=== PATIENT | male | born 1945 | race Caucasian/White ===

== ENCOUNTER 2016-03-05 07:44 | Emergency (ER) | payer MEDICARE, OTHER ==
[2016-03-05] MEDS ORDERED: CYCLOBENZAPRINE 10 MG TABLET PO STA (08:49)
[2016-03-05] MEDS ORDERED: CYCLOBENZAPRINE 10 MG TABLET PO ONE (08:51)
== END 2016-03-05 08:55 | disposition home or self-care (01) ==
DX: S29.012A Strain of muscle and tendon of back wall of thorax, initial encounter (principal); X50.0XXA Overexertion from strenuous movement or load, initial encounter; Y93.89 Activity, other specified; Y92.009 Unspecified place in unspecified non-institutional (private) residence as the place of occurrence of the external cause; Y99.8 Other external cause status
CPT/HCPCS: 81003; 99283; A9270

== ENCOUNTER 2020-03-06 09:21 | Outpatient (CLI) | payer MEDICARE, OTHER ==
--- NOTE | 2020-03-06 13:27 | CT Report ---
PROCEDURE: Abdomen/Pelvis WO INDICATIONS: HEMATURIA, HX RT RENAL STONE, HX BLADDER CA TECHNIQUE: Noncontrast 5 mm thick sections acquired from the diaphragms to the symphysis. 5 mm coronal and sagi ttal reformats were then performed. For radiation dose reduction, the following was used: automated exposure control, adjustment of mA and/or kV according to patient size. COMPARISON: 10/27/2010. FINDINGS: Image quality: Excellent. ABDOMEN: Lung bases: Lung bases are clear. Heart size is normal. Solid organs: Liver and spleen are normal in size. Gallbladder is unremarkable. Pancreas is normal in contours. No adrenal nodules. Kidneys are normal in size. There are bilateral nephroliths measu ring up to 6 mm on the left and 6 mm on the right. There is a 1.3 x 0.7 cm urolith identified within the right renal pelvis. No evidence for hydronephrosis or perinephric stranding. Visualized course of the right ureter is unremarkable. No right-sided ureteral stone is seen. There is no hydronephrosis on the left. No left-sided ureteral stones. Previously seen distal left ureteral stone is no longer v isualized and presumably passed or removed. Peritoneum and bowel: Unenhanced bowel loops demonstrate normal wall thickness and caliber. No free fluid or air. Scattered colonic diverticulosis without acute inflammatory changes. Normal appendix. Nodes and vessels: No retroperitoneal or mesenteric adenopathy by size criteria. Aorta and inferior vena cava are normal in caliber. Scattered atherosclerotic calcifications. Mild ectasia of the right common iliac artery and borderline ectasia of the left common iliac artery. This is not significantl y changed. Miscellaneous: No ventral hernias. PELVIS: Genitourinary: Bladder wall thickness is normal for degree of bladder distention. No urinary bladder stone visualized. Miscellaneous: No pelvic adenopathy. Very small fat-containing left inguinal hernia without acute i nflammation. Bones: No suspicious bony lesions. No acute vertebral body compression fractures. Moderate multile robb spondylosis throughout the imaged spine with disc space loss, degenerative endplate changes and e ndplate osteophyte formation most pronounced from L3-4 through L5-S1. Degenerative changes of the radha ateral femoroacetabular joints. IMPRESSION: 1. Nonobstructing bilateral nephrolithiasis. Previously seen 4mm distal left ureteral stone is no boyd claudy visualized. Prominent 1.3 x 0.7 cm urolith visualized within the right renal pelvis. 2. Diverticulosis without acute diverticulitis. Other chronic findings as above. Reviewed by: Ravinder Rojas MD on 03/06/2020 1:25 PM PST Approved by: Ravinder Rojas MD on 03/06/2020 1:25 PM PST Station ID: [id number]
== END 2020-03-06 09:22 | disposition home or self-care (01) ==
LOC: DI 09:21
PROVIDERS: ATTEND Internal Medicine
DX: N20.0 Calculus of kidney (principal); R31.9 Hematuria, unspecified; Z85.51 Personal history of malignant neoplasm of bladder
CPT/HCPCS: 74176

== ENCOUNTER 2020-08-19 15:38 | Outpatient (CLI) | payer MEDICARE, OTHER ==
--- NOTE | 2020-08-19 17:03 | XRAY Report ---
PROCEDURE: Lumbar Spine 2 View INDICATIONS: LOW BACK PX TECHNIQUE: 3 views of the lumbar spine were acquired. COMPARISON: None. FINDINGS: Bones: 5 hyu-[id number]-[id number] vertebrae are present. There is scoliotic bony alignment, dextroscoliotic at the lumbosacral spine and levoscoliotic at the low thoracic spine. No vertebral body compression fractures. No suspicious bony lesions. Soft tissues: Overlying bowel gas pattern is normal. Again noted and better visualized on CT scannin g from 03/06/2020 are small and moderately large collecting system calculi at the right kidney includin g a large renal pelvis calculus easily visible. A thin lower pole left renal collecting system calcul us is seen. IMPRESSION: The lumbosacral spine is relatively prominently scoliotic both at the low thoracic spine and the lumbosacral spine. Degenerative disc disease and facet osteoarthritis is moderately severe t o severe overall, with likelihood of significant spinal and foraminal stenosis. Depending on the clinical status follow-up by MR scanning may be warranted. Multiple urinary tract stones of been recently previously documented by CT scanning in March of s year, and these remain. The largest calculus is at the renal pelvis on the right-please refer to th e prior report for further discussion. Urology consultation may be warranted. Reviewed by: Holger Mo MD on 08/19/2020 5:01 PM PDT Approved by: Holger Mo MD on 08/19/2020 5:01 PM PDT Station ID: [id number]
== END 2020-08-19 15:39 | disposition home or self-care (01) ==
LOC: DI.N 15:38
PROVIDERS: ATTEND Physician Assistant
DX: M47.816 Spondylosis without myelopathy or radiculopathy, lumbar region (principal); M51.36 Other intervertebral disc degeneration, lumbar region; M48.061 Spinal stenosis, lumbar region without neurogenic claudication; N20.0 Calculus of kidney

== ENCOUNTER 2021-03-11 21:50 | Outpatient (CLI) | payer MEDICARE, OTHER ==
--- NOTE | 2021-03-12 02:32 | Ultrasound Report ---
PROCEDURE: Head or Neck Soft Tissue INDICATIONS: RIGHT PREAURICULAR HARD MASS TECHNIQUE: Real time scanning was performed of the neck region of interest, with image documentation . COMPARISON: None. FINDINGS: Multiple grayscale and color Doppler images of the palpable area of concern were acquired. At the patient directed area of interest in the right preauricular region, there is a heterogeneous, irregular hypoechoic mass which appears to be within the parotid gland. It is vascular. This mass robert sures approximately 1.3 x 1.5 x 1.3 cm. IMPRESSION: Irregular, vascular hypoechoic mass in the right preauricular region measuring 1.5 cm in size. This m ass may be within the right parotid gland. Overall, this is a suspicious finding. Recommend further e valuation with contrast-enhanced CT of the neck. Biopsy can also be considered. Reviewed by: Ravinder Calderon MD on 03/12/2021 2:31 AM PST Approved by: Ravinder Calderon MD on 03/12/2021 2:31 AM PST Station ID: [id number]
== END 2021-03-11 21:51 | disposition home or self-care (01) ==
LOC: DI 21:50
PROVIDERS: ATTEND Physician Assistant
DX: R22.0 Localized swelling, mass and lump, head (principal)

== ENCOUNTER 2021-03-19 10:42 | Outpatient (CLI) | payer MEDICARE, OTHER ==
[2021-03-19] MEDS ORDERED: iohexoL-300 100 ML VIAL ONE (10:54)
[2021-03-19 11:50] LABS: CREATININE 1.1 mg/dL (0.6-1.2)
--- NOTE | 2021-03-19 14:02 | CT Report ---
PROCEDURE: SOFT TISSUE NECK W INDICATIONS: MASS OF HEAD AND NECK CONTRAST: IV CONTRAST: Isovue 300 ml: 100 PO CONTRAST: *NO PO CONTRAST TECHNIQUE: After the administration of intravenous contrast, 3.0 mm axial sections acquired from the sella to th e aortic arch. Additional oblique axial 3.0 mm sections acquired through the pharynx. 3 mm thick co kevin reformats were generated. For radiation dose reduction, the following was used: automated exp osure control, adjustment of mA and/or kV according to patient size. COMPARISON: Correlation is made with the accompanying head CT, 03/19/2021. Correlation is also made w ith the recent ultrasound, 03/11/2021. FINDINGS: Image quality: There is artifact associated with the metallic hardware. Lymph nodes: No enlarged lymph nodes seen throughout the neck. Vessels: Visualized vasculature appears patent. Neck spaces: The oropharynx, nasopharynx, and pharynx demonstrate no mucosal lesions. The vocal cor ds, false vocal cords, pyriform sinuses, epiglottis, vallecula, and tongue base all appear normal. E xtramucosal spaces appear unremarkable. Glands: Evaluation of the area of clinical concern of the parotid glands is limited by streak artifa ct. At the area of clinical concern, there is a hyperenhancing nodule along the posterior inferior as pect of the right parotid gland that measures approximately 2 x 1.3 in greatest axial dimension. The submandibular glands appear normal. The thyroid is normal in size and there are no incidental fi ndings. Miscellaneous: Visualized brain and orbits appear normal. Lung apices appear clear. Superficial so ft tissues appear normal. Bones: No suspicious bony lesions. There is subtotal opacification seen involving the right maxilla ry sinus. Visualized sinuses and mastoids otherwise appear unremarkable. Moderate to prominent cervic al spine degenerative changes are seen. IMPRESSION: There is a poorly seen mass at the area of clinical concern along the posterior inferior aspect of th e right parotid. Differential diagnosis includes pleomorphic adenoma and Warthin tumor. Additional en tities including carcinoma metastatic disease, and an intraparotid lymph node are also possible, yet considered to be less likely. Please consider ultrasound guided percutaneous fine needle aspiration. No enlarged lymph nodes are seen. Incidental note is made of: Focal right maxillary sinus disease. Moderate to prominent cervical spine degenerative change Reviewed by: Dandre Patel MD on 03/19/2021 1:01 PM DEBBIE Approved by: Dandre Patel MD on 03/19/2021 1:[address] [facility] Station ID: [id number]
--- NOTE | 2021-03-19 14:04 | CT Report ---
PROCEDURE: HEAD W INDICATIONS: MASS OF HEAD AND NECK CONTRAST: IV CONTRAST: Isovue 300 ml: 100 PO CONTRAST: *NO PO CONTRAST TECHNIQUE: 4.5 mm thick angled axial sections acquired from the foramen magnum to the vertex after the administr ation of intravenous contrast. For radiation dose reduction, the following was used: automated expo sure control, adjustment of mA and/or kV according to patient size. COMPARISON: Correlation is made with the accompanying soft tissue neck CT, 03/19/2021. Relation is al so made with the recent prior ultrasound, 03/11/2021. FINDINGS: Image quality: Excellent. CSF Spaces: Basal cisterns are patent. No extra-axial fluid collections. Ventricles are normal in size and shape. Brain: No midline shift. No intracranial bleeds or masses. No abnormal intracranial enhancement. Garcia-white interface appears normal. Age-appropriate brain parenchymal volume loss and chronic small vessel ischemic change can be seen. Skull and face: Calvarium and visualized facial bones appear intact, without suspicious lesions. Th e area of clinical concern of the right parotid is off of the [id number] of this study. Sinuses: Visualized sinuses and mastoids are clear. IMPRESSION: Unremarkable intracranial study, without findings of masses or abnormal enhancement. Age-appropriate brain parenchymal volume loss and chronic small vessel ischemic change can be seen. Reviewed by: Dandre Patel MD on 03/19/2021 1:02 PM [facility] Approved by: Dandre Patel MD on 03/19/2021 1:02 PM [facility] Station ID: [id number]
[2021-03-19] MEDS ORDERED: iohexoL-300 100 ML VIAL IVP ONE (16:29)
== END 2021-03-19 10:43 | disposition home or self-care (01) ==
LOC: LAB 10:42
PROVIDERS: ATTEND Physician Assistant
DX: R22.0 Localized swelling, mass and lump, head (principal); K11.8 Other diseases of salivary glands
CPT/HCPCS: 36415; 70460; 70491; 82565; Q9967

== ENCOUNTER 2023-01-04 18:13 | Emergency (ER) | payer MEDICARE, OTHER ==
[2023-01-04 18:48] VITALS: BP 163/89; O2SAT 100
== END 2023-01-04 20:09 | disposition left against medical advice (07) ==
LOC: ED 18:13
DX: Z53.21 Procedure and treatment not carried out due to patient leaving prior to being seen by health care provider (principal)

== ENCOUNTER 2023-01-29 10:50 | Outpatient (CLI) | payer MEDICARE, OTHER ==
--- NOTE | 2023-01-29 11:30 | Sleep Patient Instructions ---
Sleep Center Visit Summary - Patient Visit Information Reason for Visit: Initial consult for evaluation of sleep disordered breathing and other sleep issues. - Patient Instructions Instructions Attached: Sleep Study Additional Instructions: You will be completing a sleep study, either an in-lab polysomnography (PSG) or home sleep study (HST). You will follow-up in the sleep care office after the sleep study is completed to hear the results and talk about therapy, if needed. You will be called by our office staff to schedule this appointment, but you may contact us with any questions. - Clinic Information Contact: [facility] [address] [place] [address] [email or web address] T: [phone]
--- NOTE | 2023-01-29 11:38 | SLEEP CARE CONSULTATION ---
Information from patient questionnaire entered by Abigail Murillo. I have reviewed and concur with the information entered by Abigail Murillo. This document represents the service I personally performed and the decisions made by me, Elle Chen ARNP. History of Present Illness Service Date and Time: 01/29/2023 1050 Reason for Visit: New patient Accompanied by: Spouse Chief Complaint: reports: Unrefreshed sleep, Frequent awakenings at night Date of Onset: AT LEAST 10YRS Usual bedtime: 10PM Time it takes to fall asleep: 15-25 minutes Snores at night: Yes (occasional) Observed to quit breathing while asleep: No Sleeps alone due to snoring: No Number of times waking at night: 2-3 Reasons for waking at night: reports: Bathroom, Other (UNKNOWN). denies: Choking, Snoring, Gasping for air Toss, Turn, or Twitch while sleeping: No Recalls having dreams: Yes Usually gets out of bed at: 630AM Feels refreshed in the morning: No Morning headache: No Sleepy or fatigued during the day: Yes (will doze off if sitting still ) Ever fallen asleep while driving: No Takes day naps: Yes (almost daily in afternoon for 30 minutes to hour) Dreams during day naps: Yes Prior sleep studies: No Additional HPI information: I had the pleasure of seeing JACQUELYN CESAR with spouse accompanying him today regarding the possibility of him having a sleep disorder. His current complaints are frequent night awakenings and unrefreshed sleep. He says he is a light sleeper and will wake up frequently. He says he was on second shift for many years when he was working. He retired in 2010 and since then he has been waking up more frequently. He used to sleep through the night without waking up. He will wake up at night for bathroom and other unknown reasons. He sometimes wakes up in early AM and cannot go back to sleep easily. He is active, works out at gym 3 times a week. He will doze off if he sits and reads. He usually takes a nap for about an hour in the late afternoon. He does not wake up feeling refreshed. His says that he snores occasionally and she will touch him when he does and he stops. She is able to sleep in same room. She denies seeing him stop breathing or pause in breathing when sleeping. - Parasomnia Symptoms Ever been unable to move upon waking from sleep: No Walks in sleep: No Talks in sleep: No Ever acted out dreams in sleep: No Ever felt weak in the knees when startled or emotional: No Bothered by creepy, crawly, restless sensations in legs: No Problems with memory or concentration: Yes (concentration more but memory not as sharp) Subjective Initial [place] Sleepiness Scale score: 8 (01/29/23) Past Medical History Past Medical History: reports: Other (shoulder surgeries; scoliosis) Social History The patient's occupation is a RE. Patient is and lives in [place]. Have you smoked in the past 12 months: No Alcohol use: Yes Alcohol amount and frequency: 2-3OZ 3TIMES PER WEEK AT4PM Caffeine use: Yes Caffeine amount and frequency: 1 CUP MORNINGS SOMETIMES AFTERNOON Family History Family history of sleep disordered breathing: No Allergies and Home Medications Known drug allergies: No Drug allergies reviewed: Yes Home medication list reviewed: Yes Allergy and home medication list: Allergies No Known Drug Allergies Allergy (Verified 01/28/23 13:01) Home Medications Medication Instructions Recorded Confirmed Last Taken Type Simvastatin [Zocor] 10 mg PO DAILY 07/15/12 01/29/23 Unknown History Ascorbic Acid [Vitamin C] See Rx Instructions .ROUTE .COMPLEX 01/29/23 01/29/23 Unknown History Cholecalciferol (Vitamin D3) See Rx Instructions .ROUTE .COMPLEX 01/29/23 01/29/23 Unknown History [Vitamin D3] Glutamine [l-Glutamine] See Rx Instructions .ROUTE .COMPLEX 01/29/23 01/29/23 Unknown History Progesterone, Micronized See Rx Instructions .ROUTE .COMPLEX 01/29/23 01/29/23 Unknown History [Prometrium] Review of Systems Weight loss over past 5 years: 12 Cardiovascular: denies: high blood pressure Gastrointestinal: reports: difficulty swallowing (chicken or salmon in particular) Neurological: denies: headaches Psychiatric: denies: anxiety, depression Ear/Nose/Throat: reports: dry mouth/throat, hoarseness. denies: tonsillectomy Endocrine: denies: thyroid disease Musculoskeletal: reports: back pain Physical Exam Vital signs obtained and entered by: ABIGAIL Louie MA Blood Pressure: 112/70 (LEFT ARM) Cuff size: regular Heart Rate: 68 O2 Saturation: 98 Height: 5 ft 3 in Weight: 138 lb 6.4 oz Body Mass Index: 24.5 BMI Classification: Normal Neck circumference: 14.5 Mouth and throat: normal Soft palate: normal Hard palate: normal Uvula: normal Uvula visualization: 100% Mallampati Class I Tongue: enlarged in size with teeth boland on lateral edges Tonsils: small Neck: normal w/o lymphadenopathy or thyromegaly Heart: regular rate and rhythm Lungs: clear bilaterally Impression and Plan 1. Suspected Obstructive Sleep Apnea-Hypopnea Syndrome, as suggested by a history of loud and irregular snoring, frequent awakening during the night, unrefreshed sleep, cognitive impairment, and excessive daytime sleepiness. Narrow oropharynx and obesity are common predisposing factors for obstructive sleep apnea-hypopnea syndrome. I recommend proceeding to polysomnography to confirm the diagnosis and to assess severity. If the patient has significant sleep disordered breathing, a manual CPAP titration study will also be performed to find the optimal treatment pressure. I informed the patient of what the sleep studies involve and after some discussion, obtained agreement to proceed. The pathophysiology of obstructive sleep apnea-hypopnea syndrome was discussed with the patient and health risks of cardiovascular and cerebrovascular disease if not treated. Risks of drowsy driving discussed in detail and patient advised to avoid long distance driving and to tack puller at the first sign of drowsiness. Patient agreed to plan. * Schedule polysomnography +- manual CPAP titration study and return in 1-2 weeks after the study to discuss result and initiate therapy. * Avoid long distance driving or driving when feeling sleepy. * Avoid alcohol, sedative and muscle relaxant around bedtime. * Review instructions provided by trained office staff on how to prepare for the sleep study. * Return for follow-up after sleep study completed. Plan: PSG Visit Type: In Office Time Spent with Patient (minutes): 32 Provider Statement: I spent 100% of the Face to Face Visit with the patient with greater than 50% spent counseling the patient and coordination of care.
[2023-01-29 11:43] VITALS: BP 112/70; O2SAT 98
== END 2023-01-29 10:51 | disposition home or self-care (01) ==
LOC: SC 10:50
PROVIDERS: ATTEND Nurse Practitioner Family
DX: G47.10 Hypersomnia, unspecified (principal); R06.83 Snoring; G47.8 Other sleep disorders; R41.89 Other symptoms and signs involving cognitive functions and awareness
CPT/HCPCS: 99203; G0463; 99212

== ENCOUNTER 2023-02-17 19:51 | Outpatient (CLI) | payer MEDICARE, OTHER | END 2023-02-17 19:52 | disposition home or self-care (01) | LOC: SC 19:51 | PROVIDERS: ATTEND Nurse Practitioner Family | DX: R53.83 Other fatigue (principal); G47.8 Other sleep disorders; R06.83 Snoring | CPT/HCPCS: 95810 ==

== ENCOUNTER 2023-03-04 09:43 | Outpatient (CLI) | payer MEDICARE, OTHER ==
--- NOTE | 2023-03-04 10:17 | Sleep Patient Instructions ---
Sleep Center Visit Summary - Patient Visit Information Reason for Visit: Sleep study follow-up - Patient Instructions Additional Instructions: Your sleep study today was negative for significant sleep disordered breathing. However, you did have elevated respiratory episodes when sleeping on your back. You should avoid sleeping on your back to control these respiratory episodes. You were found to have episodes of snoring. There are different ways to control snoring including weight loss, oral devices made by a dentist or surgical options through ENT specialist. You should not use oral devices that do not fit properly because they can affect your bite. You should also check insurance coverage of oral devices for snoring because they may not be cover well. You may obtain a referral to an ENT specialist through your primary provider. Follow-up as needed. - Clinic Information Contact: Located within [facility] [address] [place] [address] [email or web address] T: [phone]
--- NOTE | 2023-03-04 10:20 | SLEEP CARE CONSULTATION ---
Information from patient questionnaire entered by Darya Murillo. I have reviewed and concur with the information entered by Darya Murillo. This document represents the service I personally performed and the decisions made by , Elle Chen ARNP. History of Present Illness Service Date and Time: 03/04/2023 0943 Accompanied by: Spouse (Laura) Initial Delta Sleepiness Scale score: 8 (01/29/23) Current Delta Sleepiness Scale score: 10 Additional HPI information: JACQUELYN CESAR returns for follow up and results of the recently performed polysomnography. The patient was informed of the following findings: No significant sleep disordered breathing with an average AHI of 1.0 and miriam oxygen saturation of 91%. I explained the pathophysiology behind obstructive sleep apnea. Patient does not have sleep apnea and was advised how weight gain could increase the risk of developing sleep apnea in the future. Patient does not have significant sleep disordered breathing but has elevated AHI in supine position so advised positional therapy. Methods to achieve positional management therapy were discussed; such as, positioning with pillows, wearing a T-shirt with tennis balls sewn into the back or commercially available products. Patient has minimal snoring. Snoring can be reduced by weight loss. Weight loss is best achieved with diet consult. Patient instructed to contact PCP for referral. Snoring can also be treated with an oral appliance from a dentist. Advised to check insurance coverage. In addition, an ENT evaluation can be do to see if other treatment is indicated. Patient counseled not drink alcohol less than 4 hours before bedtime as it can increase snoring and apnea. Patient was cautioned about risks of drowsy driving until sleepiness symptoms resolve. Patient denies drowsy driving. Sleep Study - Results Type of Sleep Study: Polysomnography (COMPLETED 02/17/23) Prior sleep studies: No Polysomnography/Home Sleep Study results: IMPRESSION: The quality of the study is good. The patient had reduced sleep efficiency due to wakefulness after sleep onset. The sleep architecture was also normal. Respiratory monitoring showed no significant sleep disordered breathing (AHI = 1.0) or hypoxia (miriam oxygen saturation of 91%). The patient slept mostly supine (supine AHI = 5.7; non-supine = 0.55). No audible snore. There was no significant periodic leg movement of sleep. Cardiac rhythm was normal sinus rhythm without significant arrhythmia. No abnormal behavior (parasomnia) observed during the night. Allergies and Home Medications Known drug allergies: No Drug allergies reviewed: Yes Home medication list reviewed: Yes (no changes) Allergy and home medication list: Allergies No Known Drug Allergies Allergy Review of Systems Review of systems same as previous: Yes (no changes) Physical Exam Vital signs obtained and entered by: GAGAN WHITEHEAD Blood Pressure: 112/71 Cuff size: wrist (right) Heart Rate: 58 O2 Saturation: 99 Height: 5 ft 3 in Weight: 139 lb Body Mass Index: 24.6 BMI Classification: Normal Impression and Plan 1. Snoring but no significant sleep disordered breathing. However patient did have minimally elevated supine AHI at 5.7 and should avoid sleeping supine. An oral appliance can also be used for snoring. This would require a dental c onsultation. Patient cautioned not to use other online appliances as can cause bite issues. Patient is advised to check if insurance will cover. An ENT consult can also be helpful to determine if any other treatment is an option. * Maintain a healthy weight * Avoid alcohol consumption near bedtime * Return as needed for follow up. Counseling Topics: Sleeping position Follow up with Sleep Care in: as needed Visit Type: In Office Time Spent with Patient (minutes): 22 Provider Statement: I spent 100% of the Face to Face Visit with the patient with greater than 50% spent counseling the patient and coordination of care.
[2023-03-04 10:26] VITALS: BP 112/71; O2SAT 99
== END 2023-03-04 09:44 | disposition home or self-care (01) ==
LOC: SC 09:43
PROVIDERS: ATTEND Nurse Practitioner Family
DX: R06.83 Snoring (principal)
CPT/HCPCS: 99213; G0463; 99212

== ENCOUNTER 2023-04-07 10:32 | Outpatient (CLI) | payer MEDICARE, OTHER ==
--- NOTE | 2023-04-07 17:36 | XRAY Report ---
PROCEDURE: Foot 3+V RT (Weight Bearing) INDICATIONS: RIGHT HEEL PAIN TECHNIQUE: 3 weight-bearing views acquired of the right foot. COMPARISON: None FINDINGS: Bones: There is normal bony alignment with weight bearing. No fractures or dislocations. No suspic ious bony lesions. Soft tissues: No tibiotalar joint effusion. No suspicious soft tissue calcifications. IMPRESSION: Unremarkable right foot radiographs Reviewed by: Mauri Dominguez MD on 04/07/2023 4:34 PM [facility] Approved by: Mauri Dominguez MD on 04/07/2023 4:34 PM [facility] Station ID: [id number]
== END 2023-04-07 10:33 | disposition home or self-care (01) ==
LOC: DI 10:32
PROVIDERS: ATTEND Podiatrist
DX: M79.671 Pain in right foot (principal)